=== PATIENT | male | born 1935 | race Native Hawaiian/Other Pacific Islander ===

== ENCOUNTER 2022-05-21 10:12 | Emergency (ER) | payer MEDICARE, OTHER ==
--- NOTE | 2022-05-21 10:14 | ERPHSYRPT ---
- History of Present Illness Time Seen by Provider: 05/21/22 10:14 Source: patient, family Exam Limitations: no limitations Physician History: This is an 87-year-old white male patient has a history of hypertension, atrial fibrillation and congestive heart failure. Patient has had worsening shortness of breath over the last 3 days. He has an for oxygen but has yet to qualify for home oxygen therapy. He does have a history of sleep apnea. Patient denies chest pain. He denies abdominal pain. Patient was on daily antidiuretic (Lasix) however, they felt this might be contributing to times of dehydration so they told the patient to use it on an as-needed basis only. Patient has not had any cough. He has had no nausea vomiting or diarrhea. Patient medication list appears to show patient taking both Eliquis and Plavix. Timing/Duration: day(s) (3), worse Activities at Onset: activity Severity of Dyspnea-Max: mild Severity of Dyspnea-Current: mild Possible Cause: occasional episodes Modifying Factors: Improves With: activity (Worsens) Associated Symptoms: No cough, No chest pain/discomfort Allergies/Adverse Reactions: No Known Drug Allergies Allergy (Unverified 05/21/22 10:45) Home Medications: Allopurinol 100 mg [Zyloprim 100 mg] 100 mg PO DAILY 05/21/22 [History] Apixaban [Eliquis 5 mg Tablet] 5 mg PO BID 05/21/22 [History] Aspirin EC 81 mg [Ecotrin 81 mg] 81 mg PO DAILY 05/21/22 [History] Atorvastatin Calcium [Lipitor 40Mg] 40 mg PO DAILY 05/21/22 [History] Cholecalciferol (Vitamin D3) [Vitamin D3] 2,000 unit PO DAILY 05/21/22 [History] Clopidogrel Bisulfate [PLAVIX Tablet] 75 mg PO DAILY 05/21/22 [History] Ferrous Sulfate 325 mg [Feosol 325 mg] 325 mg PO HS 05/21/22 [History] Furosemide 40 mg [Lasix 40 MG] 40 mg PO UD PRN 05/21/22 [History] Meclizine HCl 25 mg [Antivert 25 mg] 25 mg PO UD PRN 05/21/22 [History] Montelukast Sodium 10 mg [Singulair 10 MG] 10 mg PO DAILY 05/21/22 [History] Multivitamin 1 each PO DAILY 05/21/22 [History] Nitroglycerin 0.4 mg Tablet [Nitrostat 0.4 MG Tablet] 0.4 mg SL UD PRN 05/21/22 [History] PANTOPRAZOLE 40 mg Tablet [Protonix 40MG Tablet] 40 mg PO QAM 05/21/22 [History] carvediloL [Carvedilol] 25 mg PO DAILY 05/21/22 [History] lisinopriL [Zestril] 2.5 mg PO DAILY 05/21/22 [History] Travel Risk - International Travel Have you traveled outside of the country in past 3 weeks: No - Coronavirus Screening Are you exhibiting any of the following symptoms?: Yes Symptoms: Shortness of Breath Close contact with a COVID-19 positive Pt in past 14-21 Days: No - Review of Systems Constitutional: No Symptoms Eyes: No Symptoms Ears, Nose, & Throat: No Symptoms Respiratory: Dyspnea, Wheezing (Was wheezing at home) Cardiac: No Symptoms Abdominal/Gastrointestinal: No Symptoms Genitourinary Symptoms: No Symptoms Musculoskeletal: No Symptoms Skin: No Symptoms Neurological: No Symptoms Psychological: No Symptoms Endocrine: No Symptoms Hematologic/Lymphatic: No Symptoms Immunological/Allergic: No Symptoms All Other Systems: Reviewed and Negative - Past Medical History Pertinent Past Medical History: Yes - Past Surgical History Past Surgical History: Yes - Nursing Vital Signs Nursing Vital Signs: Initial Vital Signs Temperature 96.7 F 05/21/22 10:19 Pulse Rate 91 H 05/21/22 10:19 Respiratory Rate 25 H 05/21/22 10:19 Blood Pressure 156/98 05/21/22 10:19 O2 Sat by Pulse Oximetry 95 05/21/22 10:19 Pain Scale Pain Intensity 0 - Physical Exam General Appearance: no apparent distress, alert, anxiety, obese Eye Exam: PERRL/EOMI, eyes nml inspection Ears, Nose, Throat Exam: normal ENT inspection, normal pharynx, hearing decreased (Patient has decreased hearing and has hearing aids) Neck Exam: normal inspection, non-tender, supple, full range of motion Respiratory Exam: normal breath sounds, lungs clear, airway intact, No chest tenderness, No respiratory distress Cardiovascular/Chest Exam: normal heart sounds, regular rate/rhythm Abdominal/Gastrointestinal Exam: soft, normal bowel sounds, No tenderness Rectal Exam: not done Extremity Exam: non-tender, normal range of motion, swelling (Mild bilateral feet and ankle swelling) Neurologic Exam: alert, oriented x 3, cooperative, clinical specialist II-XII nml as tested, normal mood/affect, nml cerebellar function, nml station & gait, sensation nml Skin Exam: warm, dry, other (Chronic venous stasis disease bilateral ankles) Lymphatic Exam: No adenopathy SpO2 Interpretation: normal O2 Delivery: Room Air - Course Nursing assessment & vital signs reviewed: Yes EKG Interpreted by Me: RATE (80), A-fib, Other (No evidence of acute ischemic changes on today's twelve-lead EKG) Ordered Tests: Active Orders 24 hr Category Date Time Status [place] STAT Care 05/21/22 10:44 Active EKG-ER Only STAT Care 05/21/22 10:43 Active IV Insertion STAT Care 05/21/22 10:43 Active Pulse Oximetry (ED) STAT Care 05/21/22 10:43 Active CHEST 1 VIEW (PORTABLE) Stat Exams 05/21/22 11:22 Taken CBC W DIFF Stat Lab 05/21/22 11:15 Completed CMP Stat Lab 05/21/22 11:15 Completed NT PRO BNP Stat Lab 05/21/22 11:15 Completed PROTIME WITH INR Stat Lab 05/21/22 11:15 Completed TROPONIN Q4H Lab 05/21/22 11:15 Completed TROPONIN Q4H Lab 05/21/22 14:45 Ordered TROPONIN Q4H Lab 05/21/22 18:45 Ordered Medication Summary Discontinued Medications Generic Name Dose Route Start Last Admin Trade Name Freq PRN Reason Stop Dose Admin Methylprednisolone Sodium 0 mg 05/21/22 10:44 05/21/22 11:18 Succinate 125 mg/ Sterile IV 05/21/22 10:45 125 mg Water 2 ml STAT ONE Administration Furosemide 40 mg 05/21/22 12:10 Furosemide 40 Mg/4 Ml Vial IV 05/21/22 12:11 STAT ONE Methylprednisolone Sodium Succinate Confirm 05/21/22 11:12 Methylprednis Sod Succ 125 Mg/2 Ml Vial Administered 05/21/22 11:13 Dose 125 mg .ROUTE .STK-MED ONE Sterile Water Confirm 05/21/22 11:12 Water For Injection,Sterile 10 Ml Vial Administered 05/21/22 11:13 Dose 10 ml IJ .K-MED ONE Lab/Rad Data: Laboratory Result Diagrams 05/21/22 11:15 05/21/22 11:15 Laboratory Results 05/21/22 05/21/22 05/21/22 Range/Units 11:15 11:15 11:15 WBC (4.0-10.5) x10^3/uL RBC (4.1-5.6) x10^6/uL Hgb (12.5-18.0) g/dL Hct (42-50) % MCV (78-100) fL MCH (26-32) pg MCHC (32-36) g/dL RDW (11.5-14.0) % Plt Count (150-450) x10^3/uL MPV (7.5-11.0) fL Gran % (36.0-66.0) % Immature Gran % (Auto) (0.00-0.4) % Nucleat RBC Rel Count (0.00-0.1) % Eos # (Auto) (0-0.5) x10^3/uL Immature Gran # (Auto) (0.00-0.03) x10^3u/L Absolute Lymphs (auto) (1.0-4.6) x10^3/uL Absolute Monos (auto) (0.0-1.3) x10^3/uL Absolute Nucleated RBC (0.00-0.01) x10^3u/L Lymphocytes % (24.0-44.0) % Monocytes % (0.0-12.0) % Eosinophils % (0.00-5.0) % Basophils % (0.0-0.4) % Absolute Granulocytes (1.4-6.9) x10^3/uL Basophils # (0-0.4) x10^3/uL PT 12.9 H (9.4-12.5) SECONDS INR 1.24 (0.8-3.0) Sodium 133 L (137-145) mmol/L Potassium 4.9 (3.5-5.1) mmol/L Chloride 101 (98-107) mmol/L Carbon Dioxide 26 (22-30) mmol/L Anion Gap 10.7 (5-15) MEQ/L BUN 15 (9-20) mg/dL Creatinine 1.01 (0.66-1.25) mg/dL Estimated GFR > 60.0 ML/MIN Glucose 132 H (74-106) mg/dL Calcium 9.0 (8.4-10.2) mg/dL Total Bilirubin 1.60 H (0.2-1.3) mg/dL AST 55 (17-59) U/L ALT 66 H (0-50) U/L Alkaline Phosphatase 165 H (38-126) U/L Troponin I < 0.012 (0.000-0.034) ng/mL NT-Pro-B Natriuret Pep 3700 H (0-1800) pg/mL Serum Total Protein 6.8 (6.3-8.2) g/dL Albumin 4.0 (3.5-5.0) g/dL Influenza Type A Ag (NEGATIVE) Influenza Type B Ag (NEGATIVE) RSV (PCR) (Negative) SARS-CoV-2 (PCR) (NEGATIVE) 05/21/22 05/21/22 Range/Units 11:15 10:50 WBC 9.8 (4.0-10.5) x10^3/uL RBC 3.34 L (4.1-5.6) x10^6/uL Hgb 11.3 L (12.5-18.0) g/dL Hct 33.5 L (42-50) % MCV 100.3 H (78-100) fL MCH 33.8 H (26-32) pg MCHC 33.7 (32-36) g/dL RDW 14.2 H (11.5-14.0) % Plt Count 155 (150-450) x10^3/uL MPV 9.7 (7.5-11.0) fL Gran % 85.1 H (36.0-66.0) % Immature Gran % (Auto) 0.6 H (0.00-0.4) % Nucleat RBC Rel Count 0.0 (0.00-0.1) % Eos # (Auto) 0.09 (0-0.5) x10^3/uL Immature Gran # (Auto) 0.06 H (0.00-0.03) x10^3u/L Absolute Lymphs (auto) 0.67 L (1.0-4.6) x10^3/uL Absolute Monos (auto) 0.59 (0.0-1.3) x10^3/uL Absolute Nucleated RBC 0.00 (0.00-0.01) x10^3u/L Lymphocytes % 6.8 L (24.0-44.0) % Monocytes % 6.0 (0.0-12.0) % Eosinophils % 0.9 (0.00-5.0) % Basophils % 0.6 (0.0-0.4) % Absolute Granulocytes 8.32 H (1.4-6.9) x10^3/uL Basophils # 0.06 (0-0.4) x10^3/uL PT (9.4-12.5) SECONDS INR (0.8-3.0) Sodium (137-145) mmol/L Potassium (3.5-5.1) mmol/L Chloride (98-107) mmol/L Carbon Dioxide (22-30) mmol/L Anion Gap (5-15) MEQ/L BUN (9-20) mg/dL Creatinine (0.66-1.25) mg/dL Estimated GFR ML/MIN Glucose (74-106) mg/dL Calcium (8.4-10.2) mg/dL Total Bilirubin (0.2-1.3) mg/dL AST (17-59) U/L ALT (0-50) U/L Alkaline Phosphatase (38-126) U/L Troponin I (0.000-0.034) ng/mL NT-Pro-B Natriuret Pep (0-1800) pg/mL Serum Total Protein (6.3-8.2) g/dL Albumin (3.5-5.0) g/dL Influenza Type A Ag NEGATIVE (NEGATIVE) Influenza Type B Ag NEGATIVE (NEGATIVE) RSV (PCR) NEGATIVE (Negative) SARS-CoV-2 (PCR) NEGATIVE (NEGATIVE) - Progress Progress: improved Air Movement: good Progress Note: 05/21/22 12:16 Chest x-ray shows question of right lower lobe fluid versus early infiltrate. There are small bilateral pleural effusions present. Blood Culture(s) Obtained: Yes Antibiotics given: Yes Counseled pt/family regarding: lab results, diagnosis, need for follow-up, rad results - Departure Departure Disposition: Home Clinical Impression: CHF exacerbation, Pleural effusion, bilateral, Pulmonary infiltrate in right lung on CXR Condition: Stable Critical Care Time: No Instructions: Heart Failure Additional Instructions: Begin your Lasix twice a day for 2 days. Call your prescribing doctor tomorrow morning for further instructions. Take your other medication as prescribed. Prescriptions: Azithromycin 250 mg [Zithromax 250 MG TABLET] 250 mg PO ZPACK #6 tablet
[2022-05-21] MEDS ORDERED: solu-MEDROL 125 MG, Sterile H2O 10 ml 2 ML IV ONE ×2 (10:44)
[2022-05-21] MEDS ORDERED: Sterile H2O 10 ml IJ ONE (11:12)
[2022-05-21] MEDS ORDERED: solu-MEDROL ONE (11:12)
[2022-05-21 11:22] LABS: Absolute Neutrophil Ct (ANC) 8.32 x10^3/uL (1.4-6.9); Basophil (Absolute #) 0.06 x10^3/uL (0-0.4); Eosinophil % 0.9 % (0.00-5.0); Eosinophil (Absolute #) 0.09 x10^3/uL (0-0.5); Hematocrit 33.5 % (42-50); Hemoglobin 11.3 g/dL (12.5-18.0); Lymphocyte (Absolute #) 0.67 x10^3/uL (1.0-4.6); Lymphocytes % 6.8 % (24.0-44.0); Mean Cell Volume 100.3 fL (78-100); Mean Corpuscular Hemoglobin 33.8 pg (26-32); Mean Corpuscular Hgb Concent. 33.7 g/dL (32-36); Mean Platelet Volume 9.7 fL (7.5-11.0); Monocyte (Absolute #) 0.59 x10^3/uL (0.0-1.3); Neutrophil % 85.1 % (36.0-66.0); Platelet Count 155 x10^3/uL (150-450); Red Blood Count 3.34 x10^6/uL (4.1-5.6); Red Cell Distribution Width 14.2 % (11.5-14.0); White Blood Count 9.8 x10^3/uL (4.0-10.5)
[2022-05-21 11:36] LABS: INFLUENZA A NEGATIVE (NEGATIVE); INFLUENZA B NEGATIVE (NEGATIVE); RESPIRATORY SYNCTIAL VIRUS NEGATIVE (Negative); SARS-CoV-2 Xpert Express NEGATIVE (NEGATIVE)
[2022-05-21 11:42] LABS: INR 1.24 (0.8-3.0); PROTIME 12.9 SECONDS (9.4-12.5)
[2022-05-21 11:51] LABS: ALKALINE PHOSPHATASE 165 U/L (38-126); ANION GAP 10.7 MEQ/L (5-15); BLOOD UREA NITROGEN 15 mg/dL (9-20); CHLORIDE 101 mmol/L (98-107); Carbon Dioxide 26 mmol/L (22-30); Creatinine 1 1.01 mg/dL (0.66-1.25); EST GLOMERULAR FILTRATION RATE > 60.0 ML/MIN; Glucose 132 mg/dL (74-106); NT PRO BNP 3700 pg/mL (0-1800); Potassium 4.9 mmol/L (3.5-5.1); SGOT/AST 55 U/L (17-59); SGPT/ALT 66 U/L (0-50); SODIUM 133 mmol/L (137-145); Total Protein 6.8 g/dL (6.3-8.2)
[2022-05-21] MEDS ORDERED: Lasix 40 MG/4 ML IV ONE (12:10)
[2022-05-21] MEDS ORDERED: ROCEPHIN 1 Gm-D5w 50 ml Bag** 1 G/50 ML IVPB IV STA (12:19)
[2022-05-21] MEDS ORDERED: Lasix 40 MG/4 ML ONE (12:21)
[2022-05-21] MEDS ORDERED: ROCEPHIN 1 Gm-D5w 50 ml Bag** 1 G/50 ML IVPB IV ONE (12:22)
[2022-05-21 12:32] VITALS: BP 181/109; PULSE 79; O2SAT 97
--- NOTE | 2022-05-21 20:41 | XRAY ---
Indication: Short of breath. Comparison: None Portable chest does not completely include the right costophrenic angle. Mild right infrahilar infiltrate/atelectasis with tiny bibasilar pleural effusions/thickening. Heart not enlarged. Bony thorax intact with osteopenia and degenerative changes. Incidental right neck carotid endarterectomy clips and left carotid stent.
== END 2022-05-21 13:10 | disposition home or self-care (01) ==
LOC: ED 10:12
DX: I11.0 Hypertensive heart disease with heart failure (principal); I50.9 Heart failure, unspecified; J90 Pleural effusion, not elsewhere classified; R91.8 Other nonspecific abnormal finding of lung field; R06.02 Shortness of breath; Z79.01 Long term (current) use of anticoagulants; Z79.02 Long term (current) use of antithrombotics/antiplatelets; Z79.899 Other long term (current) drug therapy; Z20.828 Contact with and (suspected) exposure to other viral communicable diseases
CPT/HCPCS: 0241U; 36415; 71045; 80053; 83880; 84484; 85025; 85610; 93005; 93041; 94760; 96374; 99284; J0696; J1940; J2930